=== PATIENT | female | born 1960 | race Caucasian/White ===

== ENCOUNTER → 2016-08-17 | Outpatient (CLI) | payer OTHER ==
[~2016-08-17] MED LIST: AMLO10TA2 PO; BYSTOLIC10 MG PO; METF500T3 PO; PROAIR HFA8.5 GM INH; TRAZ150T55 PO; VALS1TAB22 PO
[2016-08-17 14:23] LABS: BASO # 0.1 x10^3/uL (0.0-0.2); BASO % 1 % (0-3); EOS % 2 % (0-3); HEMATOCRIT 38.9 % (36.0-47.0); HEMOGLOBIN 12.7 g/dL (12.0-15.5); LYMPH # 1.8 x10^3/uL (1.0-4.8); LYMPH % 21 % (24-48); MEAN CORPUSCULAR HEMOGLOBIN 27 pg (25-35); MEAN CORPUSCULAR HGB CONC 33 g/dL (31-37); MEAN CORPUSCULAR VOLUME 83 fL (79-100); MONO % 5 % (0-9); NEUT % 72 % (31-73); PLATELET COUNT 254 x10^3/uL (140-400); RED CELL DISTRIBUTION WIDTH 14.1 % (11.5-14.5); WHITE BLOOD COUNT 8.8 x10^3/uL (4.0-11.0)
[2016-08-17 14:35] LABS: ALBUMIN 3.3 g/dL (3.4-5.0); CALCIUM 9.6 mg/dL (8.5-10.1); CREATININE 0.7 mg/dL (0.6-1.0); GFR 87.2; POTASSIUM 3.8 mmol/L (3.5-5.1); TOTAL BILIRUBIN 0.3 mg/dL (0.2-1.0)
== END | disposition home or self-care (01) ==
LOC: SURGPAT 13:19
PROVIDERS: ATTEND Surgery
DX: Z01.818 Encounter for other preprocedural examination (principal)
CPT/HCPCS: 36415; 80048; 82040; 82247; 85027

== ENCOUNTER 2016-08-24 06:27 | Day surgery (SDC) | payer OTHER ==
[~2016-08-24] VITALS: Ht 162.6 cm; Wt 136.5 kg
[2016-08-24] MEDS ORDERED: LIDOCAINE 1% 1 ML SYRINGE. ID PRN (07:00)
[2016-08-24] MEDS ORDERED: MORPHINE SULFATE 2 MG/ML DISP.SYRIN. IV PRN (07:00)
[2016-08-24] MEDS ORDERED: ONDANSETRON PF 4 MG/2 ML VIAL. IV PRN (07:00)
[2016-08-24] MEDS ORDERED: HYDROMORPHONE 2 MG/ML VIAL. IV PRN (07:00)
[2016-08-24] MEDS ORDERED: IV RINGERS,LACTATED 1000ML 1,000 ML IV SCH (07:00)
[2016-08-24] MEDS ORDERED: FENTANYL PF 100 MCG/2 ML VIAL. IV PRN (07:00)
[2016-08-24] MEDS ORDERED: PROCHLORPERAZINE 10 MG/2 ML VIAL. IV PRN (07:00)
[2016-08-24] MEDS ORDERED: IOHEXOL 300 MG/ML 50 ML VIAL. ONE (07:27)
[2016-08-24] MEDS ORDERED: GLUCAGON,HUMAN RECOMBINANT 1 MG/ML VIAL. ONE (07:27)
[2016-08-24] MEDS ORDERED: BUPIVAC MPF-EPI 0.5%-1:200000 30 ML VIAL. ONE (07:27)
[2016-08-24] MEDS ORDERED: SURGICEL HEMOSTAT 4X8 EACH. ONE (07:27)
[2016-08-24] MEDS ORDERED: ONDANSETRON PF 4 MG/2 ML VIAL. ONE (07:33)
[2016-08-24] MEDS ORDERED: DEXAMETHASONE SOD PHOS 20 MG/5 ML VIAL. ONE (07:33)
[2016-08-24] MEDS ORDERED: DESFLURANE 61 TO 120 MINUTES IH ONE (07:33)
[2016-08-24] MEDS ORDERED: LIDOCAINE 2% 100 MG/5 ML DISP.SYRIN. ONE (07:33)
[2016-08-24] MEDS ORDERED: PROPOFOL 20 ML IV ONE ×2 (07:33→09:17)
[2016-08-24] MEDS ORDERED: FENTANYL PF 250 MCG/5 ML VIAL. ONE (07:35)
[2016-08-24] MEDS ORDERED: ROCURONIUM 50 MG/5 ML VIAL. ONE ×2 (07:36→08:27)
[2016-08-24] MEDS ORDERED: CARV6.252 PO (07:42)
[2016-08-24] MEDS ORDERED: PHENYLEPHRINE in 0.9% NACL PF 1 MG/10 ML DISP.SYRIN. IV ONE (08:22)
[2016-08-24] MEDS ORDERED: NEOSTIGMINE METHYLSULFATE 5 MG/5 ML SYRINGE. ONE (09:22)
[2016-08-24] MEDS ORDERED: GLYCOPYRROLATE 1 MG/5 ML VIAL. ONE (09:22)
--- NOTE | 2016-08-24 10:03 | DISCH ---
DISCHARGE INSTRUCTIONS Condition on Discharge Condition on Discharge: Stable Activity After Discharge Activity Instructions for Disc: Activity as tolerated, Avoid exertion Driving Instructions after Dis: Do not drive (3-4 days) Diet after Discharge Diet after Discharge: Regular Wound Incision Care Wound/Incision Care: Ice to area for comfort Other wound/incision instructi: clark shower Wednesday Follow-Up Follow up with: Homer next week ROBBY GERBER MD Aug 24, 2016 10:03
[2016-08-24] MEDS: FENTANYL PF 100 MCG/2 ML VIAL. IV PRN ×2 (10:07→10:15)
--- NOTE | 2016-08-24 10:09 | PDOC ---
BRIEF OPERATIVE NOTE Date: Aug 24, 2016 Pre-Op Diagnosis sx cholelithiasis, obesity Post-Op Diagnosis same Procedure Performed l/s cholecystectomy Surgeon Homer Chief Engineer [employer] Velvet HWANGA Anesthesia Type: General Blood Loss 50cc IV Fluid 2000cc Specimens Obtained GB Findings mildly distended GB, few omental adhesions to undersurface, midline omental adhesions 2/2 previous abdominal surgeries Complications none Additional Remarks [id number] ROBBY GERBER MD Aug 24, 2016 10:09
[2016-08-24] MEDS ORDERED: OXYC-244 PO (10:38)
[2016-08-24] MEDS ORDERED: OXYCODONE/APAP 7.5/325 TABLET. PO ONE (11:30)
[2016-08-24 13:10] VITALS: BP 99/55
--- NOTE | 2016-08-24 21:16 | OP ---
DATE OF SURGERY: 08/24/2016 PREOPERATIVE DIAGNOSIS: Symptomatic cholelithiasis. POSTOPERATIVE DIAGNOSIS: Symptomatic cholelithiasis. PROCEDURE: Laparoscopic cholecystectomy. SURGEON: Eros Gerber MD. OVERNIGHT CAREGIVER: ODALYS Hwang ANESTHESIA: General endotracheal. ESTIMATED BLOOD LOSS: 50 mL. IV FLUID: 2000. INDICATIONS: The patient is a 55-year-old female with a BMI of 52. She is brought for cholecystectomy due to symptomatic cholelithiasis. OPERATIVE FINDINGS: The liver was generous. There were omental adhesions in the midline from previous abdominal procedures. There were a few filmy omental adhesions on the undersurface of the gallbladder. There was a stone in the ____ cap. Visual inspection of the remainder of the abdomen that could be seen was unremarkable. DESCRIPTION OF PROCEDURE: The patient was brought to the operating suite, given a general endotracheal anesthetic and the abdomen prepped and draped in usual sterile fashion. A 5 mm Visiport was used to gain access into the abdominal cavity, taking care to avoid injury to abdominal contents. This allowed for pneumoperitoneum to be established. We then placed 3 work ports under direct vision. This allowed retraction of the gallbladder superiorly and laterally. A few filmy omental adhesions were taken down with blunt and cautery dissection, taking care to avoid injury to the adjacent bowel. The cystic duct and cystic artery were exposed. The duct was clipped on the gallbladder side. Attempts at cholangiograms were unsuccessful due to the small caliber of the duct and the difficulty with the patient's size. As such, the cystic duct was clipped x 3, taking care to avoid injury or compromise of the common duct. The cystic artery was clipped and divided and the gallbladder freed from the bed and placed in an EndoCatch bag. Good hemostasis was present. A 19-Divehi round Bernardino drain was left in the subhepatic space, brought out through the lateral port site, secured to the skin with a silk stitch. Table returned to level. Gallbladder delivered through the epigastric incision. Epigastric incision closed with interrupted 0 Vicryl suture. Intra-abdominal pressure decreased to 8. No bleeding from the epigastric closure or from the midclavicular port site after its removal. Camera slowly removed, no bleeding seen. Skin incisions closed, sterile dressings applied. The patient awakened from her anesthetic and taken to the recovery room in satisfactory condition. EROS GERBER MD DR: LETICIA/melisa JOB#: [id number] / [id number]
--- NOTE | 2016-08-25 15:07 | PATHOLOGY ---
PATHOLOGY REPORT * * * * * * * * FINAL DIAGNOSIS: Gallbladder, laparoscopic cholecystectomy: - Cholelithiasis. - Chronic cholecystitis. COMMENT: There is no evidence of malignancy. (CHRISTIANM:; d/t: 08/25/16) REPORT ELECTRONICALLY SIGNED BY: Roman Hyman M.D. DATE/TIME: 08/25/2016 15:07 * * * * * * * * GROSS PATHOLOGY: Received in formalin labeled "Carlene Jenkins, gallbladder and its contents," is a 11.5 x 3.7 x 3.7 cm, intact gallbladder with pink-talamantes serosal surfaces. Opening the gallbladder reveals a velvety, light de oliveira, bile-stained mucosa and an average wall thickness of 0.1 cm. Calculi are present displaying a yellow-green de oliveira and multifaceted appearance, and no masses are noted grossly. [employer] sections from the body and fundus are submitted along with the proximal margin in cassette A1. (CAA; 08/24/2016) INITIAL CPT CODE(S): A; 89161 Professional services performed [place] [facility] [place] [address] Technical services performed by [facility] at [address] [place] [address]. SPECIMEN(S) RECEIVED: A.Gallbladder and its contents CLINICAL HISTORY: Cholelithiasis PATIENT: CARLENE JENKINS /AGE: 612/20/1960 (Age: 55) PATIENT #: [id number] ALT CASE #: SPECIMEN COLLECTION DATE: 08/24/2016 SPECIMEN RECEIVED DATE: 08/24/2016 [facility] - [address] [place] [address] - PHONE: [phone] * * * END OF REPORT * * *
== END 2016-08-24 13:45 | disposition home or self-care (01) ==
LOC: SURG 06:27
PROVIDERS: ATTEND Surgery
DX: K80.20 Calculus of gallbladder without cholecystitis without obstruction (principal); K66.0 Peritoneal adhesions (postprocedural) (postinfection); I10 Essential (primary) hypertension; J45.909 Unspecified asthma, uncomplicated; E11.9 Type 2 diabetes mellitus without complications; M19.90 Unspecified osteoarthritis, unspecified site; E66.9 Obesity, unspecified; F41.9 Anxiety disorder, unspecified; F32.9 Major depressive disorder, single episode, unspecified
CPT/HCPCS: 47562; 82947; C1782; J0780; J1100; J1956; J2370; J2405; J2704; J2710; J3010; J3490; J7030; J7120; Q9967; J1610

== ENCOUNTER 2016-08-26 22:34 | Emergency (ER) | payer OTHER ==
[~2016-08-26] VITALS: Ht 160 cm; Wt 135.2 kg
[~2016-08-26 22:34] MED LIST changes: +CARV6.252 PO; +OXYC-244 PO
[2016-08-26 22:52] VITALS: BP 189/110
--- NOTE | 2016-08-26 23:24 | PHYS DOC ---
Past Medical History Past Medical History: Diabetes-Type II, Hypertension Past Surgical History: Cholecystectomy Additional Past Surgical Histo: hernia Alcohol Use: Occasionally Drug Use: None Adult General Chief Complaint Chief Complaint: GI PROBLEM HPI HPI Patient is a 55 year old female who presents with concern of CHRISTIAN drain staying inflated after she went to bed and thinks it got tugged upon. She is 2 days postop from cholecystectomy. She has expected postsurgical pain. She denies nausea or vomiting, fever or chills. She is passing gas. She is tolerating oral intake. She had 30 mL of serosanguineous liquid out today by CHRISTIAN drain. Review of Systems Review of Systems Constitutional: Denies fever or chills [] Eyes: Denies change in visual acuity, redness, or eye pain [] HENT: Denies nasal congestion or sore throat [] Respiratory: Denies cough or shortness of breath [] Cardiovascular: No additional information not addressed in HPI [] GI: Denies nausea, vomiting, bloody stools or diarrhea [] : Denies dysuria or hematuria [] Musculoskeletal: Denies back pain or joint pain [] Integument: Denies rash or skin lesions [] Neurologic: Denies headache, focal weakness or sensory changes [] Endocrine: Denies polyuria or polydipsia [] Allergies Allergies Allergies Coded Allergies Type Severity Reaction Last Updated Verified Penicillins Allergy Severe Shortness of Air 08/24/16 Yes Physical Exam Physical Exam Constitutional: Well developed, well nourished, no acute distress, non-toxic appearance. [] HENT: Normocephalic, atraumatic, bilateral external ears normal, oropharynx moist, no oral exudates, nose normal. [] Eyes: PERRLA, EOMI, conjunctiva normal, no discharge. [] Neck: Normal range of motion, no tenderness, supple, no stridor. [] Cardiovascular:Heart rate regular rhythm, no murmur [] Lungs & Thorax: Bilateral breath sounds clear to auscultation [] Abdomen: Bowel sounds normal, soft, mild appropriate tenderness about surgical sites; well appearing surgical sites. CHRISTIAN drain to RUQ that does not keep suction [] Skin: Warm, dry, no erythema, no rash. [] Back: Normal ROM. [] Extremities: ROM intact, no edema. [] Neurologic: Alert and oriented X 3, normal motor function, normal sensory function, no focal deficits noted. [] Psychologic: Affect normal, judgement normal, mood normal. [] Current Patient Data Vital Signs Vital Signs Date Time Temp Pulse Resp B/P Pulse Ox O2 Delivery O2 Flow Rate FiO2 08/26/16 22:52 97.4 83 20 189/110 93 Room Air 97.4 Course & Med Decision Making Course & Med Decision Making Pertinent Labs and Imaging studies reviewed. (See chart for details) Discussed case with Dr. Thomas, her surgeon, who agrees CHRISTIAN drain should be pulled and she should follow up in surgery clinic. CHRISTIAN drain was pulled and dressed. Return precautions given. Patient understands and agrees with plan. Dragon Disclaimer Dragon Disclaimer This electronic medical record was generated, in whole or in part, using a voice recognition dictation system. Departure Departure Impression: Primary Impression: CHRISTIAN drain, broken Disposition: 01 HOME, SELF-CARE Condition: STABLE Referrals: BLANCHE PINTO APRN (PCP) Patient Instructions: Laparoscopic Cholecystectomy, Care After, [id number] Additional Instructions: Follow-up with surgery clinic. Return for any concerns. Problem Qualifiers Primary Impression: CHRISTIAN drain, broken Encounter type: initial encounter Qualified Code: T85.698A - Other mechanical complication of other specified internal prosthetic devices, implants and grafts, initial encounter Vernon DIAMOND MD Aug 26, 2016 23:24
== END 2016-08-26 23:50 | disposition home or self-care (01) ==
LOC: ER 22:34
DX: T85.518A Breakdown (mechanical) of other gastrointestinal prosthetic devices, implants and grafts, initial encounter (principal); E11.9 Type 2 diabetes mellitus without complications; I10 Essential (primary) hypertension; Z90.49 Acquired absence of other specified parts of digestive tract; Z98.890 Other specified postprocedural states; Z88.0 Allergy status to penicillin; Y83.8 Other surgical procedures as the cause of abnormal reaction of the patient, or of later complication, without mention of misadventure at the time of the procedure; Y92.89 Other specified places as the place of occurrence of the external cause
CPT/HCPCS: 99283